=== PATIENT | female | born 1955 | race Caucasian/White ===

== ENCOUNTER 2019-07-04 09:55 | Day surgery (SDC) | payer BC, OTHER ==
[~2019-07-04] VITALS: Ht 167.6 cm; Wt 65.8 kg
[~2019-07-04 09:55] MED LIST: CALCIUM WITH V1 EAC1 PO; COQ-10100 MG PO; COZAAR 25 MG TA25 M1 PO; DIGOXIN125 MCG PO; DULCOLAX STOOL100 M1 PO; ELIQUIS5 MG PO; FUROSEMIDE 40 M40 MG PO; KLOR-CON M2020 MEQ PO; LIVALO4 MG PO; MAGNESIUM MALATE PO; MIRALAX119 GM PO; TOPROL XL100 MG PO; TYLENOL EXTRA500 MG PO
[2019-07-04 10:48] LABS: CALCIUM 10.1 mg/dL (8.5-10.1); POTASSIUM 4.4 mmol/L (3.5-5.1)
[2019-07-04 12:06] VITALS: BP 124/71
[2019-07-04] MEDS ORDERED: HYDROCODON-ACE1 EAC7 PO (14:45)
[2019-07-04 14:58] VITALS: BP 124/71
== END 2019-07-04 15:35 | disposition home or self-care (01) ==
LOC: OR 09:55 → TBA 10:01 → OR 10:38
PROVIDERS: Podiatrist Foot & Ankle Surgery
DX: S93.525A Sprain of metatarsophalangeal joint of left lesser toe(s), initial encounter (principal); S93.145A Subluxation of metatarsophalangeal joint of left lesser toe(s), initial encounter; M20.42 Other hammer toe(s) (acquired), left foot; I48.21 Permanent atrial fibrillation; E78.5 Hyperlipidemia, unspecified; I50.9 Heart failure, unspecified; G47.30 Sleep apnea, unspecified; Z98.890 Other specified postprocedural states; Z79.899 Other long term (current) drug therapy; Z87.442 Personal history of urinary calculi; Z87.891 Personal history of nicotine dependence; Z85.3 Personal history of malignant neoplasm of breast; Z90.710 Acquired absence of both cervix and uterus; Z88.8 Allergy status to other drugs, medicaments and biological substances; Z79.01 Long term (current) use of anticoagulants; X58.XXXA Exposure to other specified factors, initial encounter; Y93.89 Activity, other specified; Y92.89 Other specified places as the place of occurrence of the external cause; Y99.8 Other external cause status
CPT/HCPCS: 50010; 50101; 50386; 55430; 56524; 56526; 57091; 57178; 62110; 62850; 70005